=== PATIENT | male | born 2000 | race Caucasian/White ===

== ENCOUNTER 2023-02-14 06:50 | Emergency (ER) | payer OTHER ==
[~2023-02-14] VITALS: Ht 157.5 cm; Wt 61.2 kg
[2023-02-14 06:55] VITALS: BP 130/80
--- NOTE | 2023-02-14 07:12 | NUR ---
Patient ambulated to bed 9.
[2023-02-14] MEDS ORDERED: KETOROLAC 15 MG/ML VIAL IM ONE (07:15)
[2023-02-14 07:21] LABS: APPEARANCE,URINE CLEAR (CLEAR); BILIRUBIN,URINE NEGATIVE (NEGATIVE); BLOOD, URINE NEGATIVE (NEGATIVE); COLOR,URINE YELLOW (YELLOW); LEUKOCYTE ESTERASE ,URINE NEGATIVE (NEGATIVE); NITRITE, URINE NEGATIVE (NEGATIVE); PH,URINE 6.5 (5.0-9.0); UGLUCOSE NEGATIVE (NEGATIVE)
--- NOTE | 2023-02-14 07:23 | NUR ---
Patient taken to radiology.
--- NOTE | 2023-02-14 07:24 | NUR ---
Pt report given to [facility]. Transfer of care at this time.
[2023-02-14 07:44] LABS: BASOPHILS # (AUTO) 0.1 K/uL (0.00-0.22); BASOPHILS % (AUTO) 0.7 % (0.0-2.0); EOSINOPHILS # (AUTO) 0.1 K/uL (0-0.4); EOSINOPHILS % (AUTO) 1.7 % (0.0-4.0); HEMATOCRIT 45.5 % (36-52); HEMOGLOBIN 15.5 g/dL (12.0-18.0); LYMPHOCYTES # (AUTO) 2.2 K/uL (2.0-11.5); LYMPHOCYTES % (AUTO) 28.6 % (20.5-51.1); MEAN CORPUSCULAR HEMOGLOBIN 30 pg (27-31); MEAN CORPUSCULAR HGB CONC 34 g/dL (33-37); MEAN CORPUSCULAR VOLUME 86.7 fL (80-94); MONOCYTES # (AUTO) 0.8 K/uL (0.8-1.0); MONOCYTES % (AUTO) 10.2 % (1.7-9.3); NEUTROPHILS # (AUTO) 4.5 K/uL (1.8-7.7); NEUTROPHILS % (AUTO) 58.8 % (42.2-75.2); PLATELET COUNT (AUTO) 260 K/uL (140-450); RED BLOOD CELL COUNT(AUTO) 5.25 MIL/uL (4.20-6.10); WHITE BLOOD COUNT (AUTO) 7.7 K/uL (4.8-10.8)
[2023-02-14 07:57] LABS: ALBUMIN 4.4 g/dL (3.4-5.0); ANION GAP 11.7 (8-16); CREATININE 0.9 mg/dL (0.6-1.3); POTASSIUM 3.7 mmol/L (3.5-5.1); TOTAL BILIRUBIN 1.1 mg/dL (0.0-1.0)
[2023-02-14] MEDS ORDERED: MIRABULK PO (08:29)
[2023-02-14 08:35] VITALS: BP 130/80
--- NOTE | 2023-02-14 08:35 | NUR ---
Patient discharged with v/s stable. Written and verbal after care instructions given and explained. Patient alert, oriented and verbalized understanding of instructions. Ambulatory with steady gait. All questions addressed prior to discharge. ID band removed. Patient advised to follow up with PMD. Rx of miralax (sent) given. Patient educated on indication of medication including possible reaction and side effects. Opportunity to ask questions provided and answered. copy of ct given
== END 2023-02-14 08:35 | disposition home or self-care (01) ==
LOC: MED 06:50
DX: K59.00 Constipation, unspecified (principal); Z79.899 Other long term (current) drug therapy
CPT/HCPCS: 36415; 74176; 80053; 81003; 83690; 85025; 96372; 99285; J1885

== ENCOUNTER 2023-03-05 07:51 | Emergency (ER) | payer OTHER ==
[~2023-03-05] VITALS: Ht 157.5 cm; Wt 62.1 kg
[~2023-03-05 07:51] MED LIST: MIRABULK PO
[2023-03-05 07:57] VITALS: BP 130/74; PULSE 78; RESP 17; TEMP 97.9; O2SAT 99
--- NOTE | 2023-03-05 08:01 | NUR ---
pt ambulatory to bed 06.
--- NOTE | 2023-03-05 08:25 | NUR ---
22 YO M PRESENTS WEAKNESS, DRY MOUTH, DIZZY SPINNING, SANDY, URINARY FREQUENCY, NAUSEA-INTERMITTENT X 1 MTH. SYMPTOMS WORSEN WHEN OUT IN THE HEAT. PT DENIES ABD PAIN, VOMITING, DIARRHEA, INJURY, VISION CHANGES. PT STATES HE HAS NOT SEEN PCP FOR THIS ISSUE. PT AOX4, NAD NOTED. SAFETY MAINTAINED. HX: MIGRAINE NKA
[2023-03-05] MEDS ORDERED: PROCHLORPERAZINE 10 MG/2 ML VIAL IVP ONE (08:35)
[2023-03-05] MEDS ORDERED: NACL 0.9% 1,000 ML IV ONE (08:35)
[2023-03-05] MEDS ORDERED: KETOROLAC 15 MG/ML VIAL IVP ONE (08:35)
--- NOTE | 2023-03-05 10:28 | NUR ---
Patient discharged with v/s stable. Written and verbal after care instructions given and explained. Patient verbalized understanding. Ambulatory with steady gait. All questions addressed prior to discharge. Advised to follow up with PMD.
--- NOTE | 2023-03-05 10:38 | NUR ---
The patient's care was reviewed and supervised by [place] [facility], RN.
== END 2023-03-05 10:38 | disposition home or self-care (01) ==
LOC: MED 07:51
DX: G43.909 Migraine, unspecified, not intractable, without status migrainosus (principal); Z79.899 Other long term (current) drug therapy
CPT/HCPCS: 70450; 96361; 96374; 96375; 99285; J0780; J1885; J7030